=== PATIENT | male | born 1985 | race Caucasian/White ===

== ENCOUNTER 2020-01-11 06:14 | Day surgery (SDC) | payer OTHER ==
[2020-01-04 12:38] VITALS: BP 140/99
[~2020-01-11] VITALS: Ht 190.5 cm; Wt 127.2 kg
[~2020-01-11 06:14] MED LIST: MULT-115 PO
[2020-01-11] MEDS ORDERED: CHLORHEXIDINE 15 ML UDC MM STA (06:53)
[2020-01-11] MEDS ORDERED: LACTATED RINGERS 1,000 ML IV SCH (06:53)
[2020-01-11 07:11] VITALS: BP 140/99
[2020-01-11] MEDS ORDERED: FENTANYL PF 250 MCG/5ML ONE (08:03)
[2020-01-11] MEDS ORDERED: MIDAZOLAM 1 MG/ML, 2ML ONE ×2 (08:03)
[2020-01-11] MEDS ORDERED: GABAPENTIN 300 MG CAPSULE ONE (08:15)
[2020-01-11] MEDS ORDERED: ACETAMINOPHEN 500 MG TABLET ONE (08:15)
[2020-01-11] MEDS ORDERED: LABETALOL 5MG/ML, 20ML IV PRN (08:30)
[2020-01-11] MEDS ORDERED: hydrALAzine 20 MG/ML, 1ML IV PRN (08:30)
[2020-01-11] MEDS ORDERED: GABAPENTIN 300 MG CAPSULE PO ONE (08:30)
[2020-01-11] MEDS ORDERED: HYDROmorphone 1 MG/ML, 1ML INJ IVPush PRN (08:30)
[2020-01-11] MEDS ORDERED: HALOPERIDOL 5 MG/ML IV PRN (08:30)
[2020-01-11] MEDS ORDERED: ACETAMINOPHEN 500 MG TABLET PO ONE (08:30)
[2020-01-11] MEDS ORDERED: MEPERIDINE/PF 25MG/0.5ML IVPush PRN (08:30)
[2020-01-11] MEDS ORDERED: FENTANYL PF 100 MCG/2ML IV PRN (08:30)
[2020-01-11] MEDS ORDERED: PROMETHAZINE 25 MG/ML, 1ML IVPush PRN (08:30)
[2020-01-11] MEDS ORDERED: DIPHENHYDRAMINE 50 MG/ML, 1ML IVPush PRN (08:30)
[2020-01-11] MEDS ORDERED: OXYcodone 5 MG/5 ML ORAL.SOL UDC PO PRN (08:30)
[2020-01-11] MEDS ORDERED: CEFAZOLIN 1,000 MG ONE ×2 (08:33→09:25)
[2020-01-11] MEDS ORDERED: ROPIvacaine/PF 0.2%, 20 ML ONE ×2 (09:14)
[2020-01-11] MEDS ORDERED: ONDANSETRON 2MG/ML, 2ML ONE (09:25)
[2020-01-11] MEDS ORDERED: PROPOFOL 10 MG/ML, 20ML ONE (09:25)
[2020-01-11] MEDS ORDERED: DEXAMETHASONE 4 MG/ML, 1ML ONE (09:25)
[2020-01-11] MEDS ORDERED: MEPERIDINE/PF 25MG/ML,1ML ONE (11:00)
[2020-01-11] MEDS ORDERED: PROMETHAZINE 25 MG/ML, 1ML ONE (11:07)
[2020-01-11] MEDS ORDERED: OXYcodone 5 MG/5 ML ORAL.SOL UDC ONE (11:39)
[2020-01-11] MEDS ORDERED: FENTANYL PF 100 MCG/2ML ONE (11:39)
== END 2020-01-11 13:10 | disposition home or self-care (01) ==
LOC: OUT 06:14
PROVIDERS: ATTEND Orthopaedic Surgery
DX: S92 Fracture of foot and toe, except ankle (principal); T84.89XA Other specified complication of internal orthopedic prosthetic devices, implants and grafts, initial encounter; Y83.8 Other surgical procedures as the cause of abnormal reaction of the patient, or of later complication, without mention of misadventure at the time of the procedure; X58.XXXD Exposure to other specified factors, subsequent encounter; M25.374 Other instability, right foot; F17.210 Nicotine dependence, cigarettes, uncomplicated; F12.90 Cannabis use, unspecified, uncomplicated; Z72.89 Other problems related to lifestyle; Z79.899 Other long term (current) drug therapy; Z82.5 Family history of asthma and other chronic lower respiratory diseases
CPT/HCPCS: 28310; 28615; 36415; 64447; 73620; 87635; C1713; J0690; J1100; J2175; J2250; J2405; J2550; J2704; J2795; J3010; J7120; 76000